=== PATIENT | male | born 1995 | race Two or more races ===

== ENCOUNTER 2022-10-15 10:34 | Emergency (ER) | payer OTHER ==
[~2022-10-15] VITALS: Ht 170.2 cm; Wt 65.0 kg
[2022-10-15 11:39] VITALS: BP 109/74
[2022-10-15] MEDS ORDERED: EMTR1TAB12 PO (12:05)
[2022-10-15] MEDS ORDERED: FLUO20TA34 PO (12:05)
== END 2022-10-15 12:21 | disposition home or self-care (01) ==
LOC: ER 10:34
DX: F41.9 Anxiety disorder, unspecified (principal); Z76.0 Encounter for issue of repeat prescription; F32.9 Major depressive disorder, single episode, unspecified; F20.9 Schizophrenia, unspecified

== ENCOUNTER 2023-11-25 19:03 | Emergency (ER) | payer OTHER ==
[~2023-11-25] VITALS: Ht 170.2 cm; Wt 70.9 kg
[~2023-11-25 19:03] MED LIST: EMTR1TAB12 PO; FLUO20TA36 PO
[2023-11-25] MEDS ORDERED: BICT1TAB PO (21:25)
[2023-11-25 22:19] VITALS: BP 121/88; PULSE 72; RESP 18; TEMP 99.1; O2SAT 99
== END 2023-11-25 22:21 | disposition home or self-care (01) ==
LOC: ER 19:03
DX: Z76.0 Encounter for issue of repeat prescription (principal); Z21 Asymptomatic human immunodeficiency virus [HIV] infection status; Z88.6 Allergy status to analgesic agent

== ENCOUNTER 2025-03-26 21:05 | Emergency (ER) | payer MEDICAID, OTHER ==
[~2025-03-26] VITALS: Ht 170.2 cm; Wt 70.2 kg
[~2025-03-26 21:05] MED LIST changes: +BICT1TAB PO; -FLUO20TA36 PO; +FLUO20TA42 PO
--- NOTE | 2025-03-26 21:43 | ED.PDOC ---
GI ASSESSMENT HPI Comments 29-year-old male presented to the ER with a chief complaint of epigastric abdominal pain for the past 1 day. Patient was recently [facility], and is currently homeless, reports eating outside, no sick contacts, states that he experienced epigastric abdominal pain, across the abdomen, not associated with nausea/vomiting/diarrhea. Does report constipation. Also reports that his testes are sore but denied any discharge or sores. Does report urinary frequency and dysuria. Denies hematuria. Patient is non compliant with Biktarvy medication. Does not have a physician. Last sexual activity was 02/25 in [facility], with a male partner. Past medical history: History of syphilis, SUP-uledgnmrkgys-gbxzgg unknown, anxiety, depression, schizophrenia Social history: Smokes cigarettes, reports using methamphetamine and drinking alcohol. Homeless. Patient seen and examined in ER lobby. Abdomen is diffusely tender but soft and normoactive bowel sounds. Scrotum is swollen but nontender, nonerythematous, no drainage noted. No inguinal lymphadenopathy or rash or sores noted. Chief Complaint: Abdominal Pain Time Seen by MD: 21:14 Allergies: Coded Allergies: Risperidone (Verified Allergy, Unknown, 11/25/23) Home Meds Active Scripts Doxycycline (Monohydrate) (Doxycycline) 100 Mg Cap, 100 MG PO BID for 10 Days, #20 CAP 0 Refills Prov:SHEILA LIU RESIDENT 03/27/25 Oafsdggegow-Ypuuoyzhomrrj-Ksjc (Biktarvy 50-200-25 mg) 1 Tab Tab, 1 TAB PO DAILY for 14 Days, #14 TAB Prov:SHEILA LIU RESIDENT 03/27/25 Fluoxetine Hcl (Fluoxetine Hcl) 20 Mg Tab, 1 TAB PO DAILY, #20 TAB 1 Refill Prov:KARISHMA ORANTES 10/15/22 Emtricitabine/Rilpivirine/Teno (Odefsey 200-25-25 mg) 1 Tab Tab, 1 TAB PO DAILY, #20 TAB Prov:KARISHMA ORANTES 10/15/22 Mode of Arrival: Ambulatory Past Medical History PAST MEDICAL HISTORY: Anxiety, Depression, Schizophrenia Surgical History: Denies all surgeries Family History Family History: Reviewed,noncontributory to illness Social History Smoker: Non-Smoker Alcohol: Denies ETOH Use Drugs: Denies Drug Use Lives In: Home Constitutional: reports: chills EENTM: denies: blurred vision, double vision, ear bleeding, ear discharge, ear drainage, ear pain, ear ringing, eye pain, eye redness, hearing loss, mouth pain, mouth swelling, nasal discharge, nose bleeding, nose congestion, nose pain, photophobia, tearing, throat pain, throat swelling, voice changes, others Respiratory: denies: cough, hemoptysis, orthopnea, SOB at rest, shortness of breath, SOB with excertion, stridor, wheezing, others Cardiovascular: denies: chest pain, dizzy spells, diaphoresis, Dyspnea on exertion, edema, irregular heart beat, left arm pain, lightheadedness, palpitations, PND, syncope, others Gastrointestinal: reports: abdominal pain Genitourinary: reports: burning, dysuria Neurological: denies: dizziness, fainting, headache, left sided numbness, left sided weakness, numbness, paresthesia, pre-existing deficit, right sided numbness, right sided weakness, seizure, speech problems, tingling, tremors, weakness, others Musculoskeletal: denies: back pain, gout, joint pain, joint swelling, muscle pain, muscle stiffness, neck pain, others Integumetry: denies: bruises, change in color, change in hair/nails, dryness, laceration, lesions, lumps, rash, wounds, others Allergic/Immunocompromised: denies: Difficulty Healing, Frequent Infections, Hives, Itching, others Hematologic/Lymphatic: denies: anemia, blood clots, easy bleeding, easy bruising, swollen glands, others Endocrine: denies: excessive hunger, excessive sweating, excessive thirst, excessive urination, flushing, intolerance to cold, intolerance to heat, unexplained weight gain, unexplained weight loss, others Psychiatric: denies: anxiety, bipolar disorder, depression, hopeless, panic disorder, schizophrenia, sleepless, suicidal, others Physical Exam General Appearance: No Apparent Distress, Normal HEENT: NOT DONE Neck: NOT DONE Respiratory: No Accessory Muscle Use, No Respiratory Distress, Normal Breath Sounds Cardiovascular: No Edema, Regular Rate/Rhythm Breast Exam: Deferred Gastrointestinal: Epigastric, LUQ, Normal Bowel Sounds, Tenderness Genitalia: Other (Scrotum is swollen but nontender, nonerythematous, no discharge noted, no rash no sores) Pelvic: Deferred Rectal: Deferred Extremities: No calf tenderness, Normal capillary refill, Normal inspection, Normal range of motion, Non-tender, No pedal edema Neurologic: NOT DONE Cerebellar Function: NOT DONE Reflexes: NOT DONE Skin: NOT DONE Lymphatic: Other (No inguinal lymphadenopathy) Was a procedure done? Was a procedure done?: No GI differential Dx Differential Diagnosis: Constipation, Pancreatitis, Urolithiasis, Electrolyte Imbalance, Food Poisoning Other Differential Diagnosis Chlamydia/gonorrhea UTI/epididymitis X-Ray, Labs, Meds, VS Vital Signs Date Time Temp Pulse Resp B/P (MAP) Pulse Ox O2 Delivery O2 Flow Rate FiO2 03/27/25 01:12 Room Air* 0 21 03/27/25 01:09 98.1 65 13 114/81 (92) 97 98.1 03/26/25 21:07 98.0 76 16 117/81 97 98.0 Lab Test 03/26/25 23:20 03/26/25 21:49 Range/Units Urine Color Yellow Yellow Urine Clarity Clear Clear Urine pH 6.5 5.0-9.0 Urine Specific [place] 1.032 1.001-1.035 Urine Protein Trace H Negative Urine Ketones Negative Negative Urine Blood Negative Negative /uL Urine Nitrite Negative Negative Urine Bilirubin Negative Negative Urine Urobilinogen Normal Negative mg/dL Urine Leukocyte Esterase Negative Negative /uL Urine RBC None seen 0 - 3 /hpf Urine Microscopic WBC 1 0-3 /HPF Urine Squamous Epithelial Cells None seen <5 /hpf Urine Calcium Oxalate Crystals Few None Seen Urine Amorphous Crystals Few None Seen /hpf Urine Bacteria None seen None Seen /hpf Urine Mucus Few None Seen Urine Glucose Normal Normal mg/dL White Blood Count 8.1 4.4-10.8 10^3/uL Red Blood Count 4.15 L 4.5-5.90 10^6/uL Hemoglobin 13.2 L 13.5-17.5 g/dL Hematocrit 38.7 L 41.0-53.0 % Mean Corpuscular Volume 93.2 80.0-100.0 fL Mean Corpuscular Hemoglobin 31.9 28.0-32.0 pg Mean Corpuscular Hemoglobin Concent 34.2 32.0-36.0 g/dL Red Cell Distribution Width 13.4 11.8-14.3 % Platelet Count 276 140-450 10^3/uL Mean Platelet Volume 7.5 6.9-10.8 fL Neutrophils (%) (Auto) 63.8 37.0-80.0 % Lymphocytes (%) (Auto) 26.3 10.0-50.0 % Monocytes (%) (Auto) 8.6 0.0-12.0 % Eosinophils (%) (Auto) 1.0 0.0-7.0 % Basophils (%) (Auto) 0.3 0.0-2.0 % Neutrophils # (Auto) 5.2 1.6-8.6 10 ^3/uL Lymphocytes # (Auto) 2.1 0.4-5.4 10 ^3/uL Monocytes # (Auto) 0.7 0-1.3 10 ^3/uL Eosinophils # (Auto) 0.1 0-0.8 10 ^3/uL Basophils # (Auto) 0 0-0.2 10 ^3/uL Nucleated Red Blood Cells 0.0 % Sodium Level 144 136-145 mmol/L Potassium Level 3.7 3.5-5.1 mmol/L Chloride Level 107 98-107 mmol/L Carbon Dioxide Level 30 20-31 mmol/L Anion Gap 7 5-15 Blood Urea Nitrogen 12 9-23 mg/dL Creatinine 0.75 0.700-1.30 mg/dL Glomerular Filtration Rate Calc 124 >90 mL/min BUN/Creatinine Ratio 16.0 10.0-20.0 Serum Glucose 99 74-106 mg/dL Calcium Level 9.2 8.7-10.4 mg/dL Total Bilirubin 0.3 0.2-1.0 mg/dL Aspartate Amino Transferase (AST) 25 13-40 U/L Alanine Aminotransferase (ALT) 53 H 7-40 U/L Alkaline Phosphatase 78 46-116 U/L Total Protein 7.0 5.7-8.2 g/dL Albumin 4.4 3.2-4.8 g/dL Lipase 26 12-53 U/L Current Medications Medications (Trade) Dose Ordered Sig/Elvira Route Start Time Stop Time Status Last Admin Pantoprazole Sodium (Protonix Tablet) 40 mg ONCE ONCE PO 03/26/25 22:45 03/26/25 22:46 DC 03/27/25 01:28 Polyethylene Glycol (Miralax 17GM Powder) 17 gm ONCE ONCE PO 03/26/25 22:45 03/26/25 22:46 DC 03/27/25 01:28 Ceftriaxone Sodium 50 ml @ 100 mls/hr ONCE ONCE IV 03/26/25 23:15 03/26/25 23:44 DC 03/27/25 01:28 X-Ray, Labs, Meds, VS Comment Indication: abdmonial pain Comparison: None Technique: Helical axial scans were performed through the abdomen and pelvis without intravenous contrast. Helical axial scans Subsequently, coronal and sagittal reformations were obtained. Dose lowering techniques have been used including automated exposure control and adjustment of mA and/or kv according to patient size. FINDINGS: Limited evaluation of the vasculature and solid organs due to lack of intravenous contrast. LUNGS BASES: Clear LIVER: Normal noncontrast appearance of the liver SPLEEN: Normal GALLBLADDER: Contracted and not well evaluated. PANCREAS: Normal ADRENAL GLANDS: Normal KIDNEYS: No hydronephrosis or obstructing renal stone. Nonobstructing right renal stone. GI: No bowel dilation or wall thickening. No bowel dilation or wall thickening LYMPH NODES: Normal VASCULAR STRUCTURES: Normal BLADDER: Partially contracted and not well evaluated PELVIC ORGAN: Normal FREE AIR OR FREE FLUID: None OSSEOUS STRUCTURES: Normal SOFT TISSUES: Normal DLP is 339.21 mGy-cm. CTDI vol is 6.17 mGy. IMPRESSION: 1. No acute abnormality on noncontrast CT abdomen or pelvis. 2. Nonobstructing right renal stone. ASOUND OF SCROTUM AND CONTENTS. INDICATION: swelling and tenderness COMPARISON: None TECHNIQUE: Multiple real-time grayscale sonographic and color and duplex Doppler images of the scrotum and its contents were obtained. FINDINGS: The right testicle measures 4.1 x 3.0 x 2.1 cm. The left testicle measures 2.8 x 2.6 x 2.5 cm. Both testicles demonstrate homogeneous echotexture without evidence of focal lesions. Left varicocele. Simple appearing left testicular cyst measures approximately 1 mm in diameter. The right epididymal head measures 1.5 cm. The left epididymal head measures 1.6 cm. Anechoic simple appearing right epididymal cysts, the largest of which measures 7 x 6 x 4 mm. Subsequent color and duplex Doppler interrogation of the testes demonstrated symmetric normal vascular flow to both testicles. No focal areas of hyperemia were seen. IMPRESSION: 1. No evidence of torsion, epididymitis, and/or orchitis. 2. Left varicocele. 3. Right epididymal cysts. 4. Simple appearing left testicular cyst. Images Reviewed?: Images reviewed and evaluated by me Time of 1ST Reevaluation: 02:00 Reevaluation 1ST: Improved Consultation: PCP Patient Education/Counseling: Diagnosis, Treatment Family Education/Counseling: No Family Present SEPSIS Sepsis Screen Date sepsis recognized/suspect: Mar 26, 2025 Time Sepsis recognized/suspect: 2106 Recent Procedure: No On Antibiotic Therapy: No Respiratory Rate >20: No Heart Rate >90: No Temp<36 C (96.8 F) or >38.3 C: No SBP <90 or MAP <65 mmHG: No New Acute Mental Status Change: No Is the patient on CPAP, BIPAP,: No Physician Orders Ct Ab Pel Wo Con-No Oral Or Iv (03/26/25 21:35) Communication Order (03/26/25 23:14) Testicular Ultrasound (03/27/25 00:11) Jock Strap Support (03/27/25 01:58) Vital Signs Date Time Temp Pulse Resp B/P (MAP) Pulse Ox O2 Delivery O2 Flow Rate FiO2 03/27/25 01:12 Room Air* 0 21 03/27/25 01:09 98.1 65 13 114/81 (92) 97 98.1 03/26/25 21:07 98.0 76 16 117/81 97 98.0 Laboratory Tests Test 03/26/25 21:49 White Blood Count 8.1 10^3/uL (4.4-10.8) Medications Medications Dose Ordered Sig/Elvira Route Start Time Stop Time Status Last Admin Dose Admin Ceftriaxone Sodium 50 ml @ 100 mls/hr ONCE ONCE IV 03/26/25 23:15 03/26/25 23:44 DC 03/27/25 01:28 Pantoprazole Sodium 40 mg ONCE ONCE PO 03/26/25 22:45 03/26/25 22:46 DC 03/27/25 01:28 Polyethylene Glycol 17 gm ONCE ONCE PO 03/26/25 22:45 03/26/25 22:46 DC 03/27/25 01:28 Departure 1 Departure Time of Disposition: 02:00 Impression: Primary Impression: History of HIV infection Additional Impressions: Varicocele Urinary tract infection Disposition: 01 HOME / SELF CARE / HOMELESS Condition: Fair e-Prescriptions Doxycycline (Monohydrate) (Doxycycline) 100 Mg Cap 100 MG PO BID for 10 Days, #20 CAP 0 Refills Prov: SHEILA LIU RESIDENT 03/27/25 Vuyytyafqtf-Zuffswcvzdmub-Kfnt (Biktarvy 50-200-25 mg) 1 Tab Tab 1 TAB PO DAILY for 14 Days, #14 TAB Prov: SHEILA LIU RESIDENT 03/27/25 Discharged With: Self Comments IV ceftriaxone 1 g administered, IV doxycycline 500 mg administered once P.o. doxycycline 100 mg twice daily for the next 10 days Where a tight underwear or scrotal support-scrotal support left stay testicles, reducing venous congestion and pulling tension which relieves the dull heavy ache please wear it during the day especially with standing walking or exercising for long periods. Remove it at night if comfortable. If testicular pain persist despite support, follow up with the Urology for possible surgical options Follow up with primary care physician within the next 3 days Follow up with the Infectious Disease for repeat CD4/CD8 ratio, viral load Tablet Biktarvy once daily, renewed and sent to [facility] Use a new latex or polyuria 10 condom every time you have vaginal/anal or oral sex The fewer sexual partners, the lower your risk of new STIs Avoid smoking/drinking/drug use ULTRASOUND OF SCROTUM AND CONTENTS. INDICATION: swelling and tenderness COMPARISON: None TECHNIQUE: Multiple real-time grayscale sonographic and color and duplex Doppler images of the scrotum and its contents were obtained. FINDINGS: The right testicle measures 4.1 x 3.0 x 2.1 cm. The left testicle measures 2.8 x 2.6 x 2.5 cm. Both testicles demonstrate homogeneous echotexture without evidence of focal lesions. Left varicocele. Simple appearing left testicular cyst measures approximately 1 mm in diameter. The right epididymal head measures 1.5 cm. The left epididymal head measures 1.6 cm. Anechoic simple appearing right epididymal cysts, the largest of which measures 7 x 6 x 4 mm. Subsequent color and duplex Doppler interrogation of the testes demonstrated symmetric normal vascular flow to both testicles. No focal areas of hyperemia were seen. IMPRESSION: 1. No evidence of torsion, epididymitis, and/or orchitis. 2. Left varicocele. 3. Right epididymal cysts. 4. Simple appearing left testicular cyst. Critical Care Note Critical Care Time?: No Stability Stability form required: No SHEILA LIU RESIDENT Mar 26, 2025 21:43
[2025-03-26 22:08] LABS: Hematocrit 38.7 % (41.0-53.0); Hemoglobin 13.2 g/dL (13.5-17.5); Mean Corpuscular Hemoglobin 31.9 pg (28.0-32.0); Mean Corpuscular Volume 93.2 fL (80.0-100.0); Nucleated Red Blood Cells % 0.0 %
[2025-03-26 22:18] LABS: Albumin 4.4 g/dL (3.2-4.8); Alkaline Phosphatase 78 U/L (46-116); Anion Gap 7 (5-15); BUN/Creatinine Ratio 16.0 (10.0-20.0); Bilirubin, Total 0.3 mg/dL (0.2-1.0); Blood Urea Nitrogen 12 mg/dL (9-23); Calcium 9.2 mg/dL (8.7-10.4); Carbon Dioxide 30 mmol/L (20-31); Chloride 107 mmol/L (98-107); Glucose 99 mg/dL (74-106); Lipase 26 U/L (12-53); Potassium 3.7 mmol/L (3.5-5.1); Sodium 144 mmol/L (136-145); Total Protein 7.0 g/dL (5.7-8.2)
[2025-03-26 22:20] LABS: Alanine Aminotransferase 53 U/L (7-40)
--- NOTE | 2025-03-26 22:20 | DVH ---
Indication: abdmonial pain Comparison: None Technique: Helical axial scans were performed through the abdomen and pelvis without intravenous cont rast. Helical axial scans Subsequently, coronal and sagittal reformations were obtained. Dose lowering techniques have been used including automated exposure control and adjustment of mA and /or kv according to patient size. FINDINGS: Limited evaluation of the vasculature and solid organs due to lack of intravenous contrast. LUNGS BASES: Clear LIVER: Normal noncontrast appearance of the liver SPLEEN: Normal GALLBLADDER: Contracted and not well evaluated. PANCREAS: Normal ADRENAL GLANDS: Normal KIDNEYS: No hydronephrosis or obstructing renal stone. Nonobstructing right renal stone. GI: No bowel dilation or wall thickening. No bowel dilation or wall thickening LYMPH NODES: Normal VASCULAR STRUCTURES: Normal BLADDER: Partially contracted and not well evaluated PELVIC ORGAN: Normal FREE AIR OR FREE FLUID: None OSSEOUS STRUCTURES: Normal SOFT TISSUES: Normal DLP is 339.21 mGy-cm. CTDI vol is 6.17 mGy. IMPRESSION: 1. No acute abnormality on noncontrast CT abdomen or pelvis. 2. Nonobstructing right renal stone.
[2025-03-26] MEDS: AZITHROMYCIN 500MG/ 250ML 250 ML IV ONE (23:00)
[2025-03-26 23:56] LABS: Urine Amorphous Crystal FEW /hpf (None Seen); Urine Protein, UAD TRACE (Negative)
[2025-03-27 01:09] VITALS: BP 114/81; PULSE 65; RESP 13; TEMP 98.1; O2SAT 97
--- NOTE | 2025-03-27 01:24 | DVH ---
ULTRASOUND OF SCROTUM AND CONTENTS. INDICATION: swelling and tenderness COMPARISON: None TECHNIQUE: Multiple real-time grayscale sonographic and color and duplex Doppler images of the scrotu m and its contents were obtained. FINDINGS: The right testicle measures 4.1 x 3.0 x 2.1 cm. The left testicle measures 2.8 x 2.6 x 2.5 cm. Both testicles demonstrate homogeneous echotexture without evidence of focal lesions. Left varicocele. Simple appearing left testicular cyst measures approximately 1 mm in diameter. The right epididymal head measures 1.5 cm. The left epididymal head measures 1.6 cm. Anechoic simple appearing right epididymal cysts, the largest of which measures 7 x 6 x 4 mm. Subsequent color and duplex Doppler interrogation of the testes demonstrated symmetric normal vascula r flow to both testicles. No focal areas of hyperemia were seen. IMPRESSION: 1. No evidence of torsion, epididymitis, and/or orchitis. 2. Left varicocele. 3. Right epididymal cysts. 4. Simple appearing left testicular cyst.
[2025-03-27] MEDS: PANTOPRAZOLE 40 MG TAB PO ONE (01:28)
[2025-03-27] MEDS: POLYETHYLENE GLYCOL 17 GM PWDR PO ONE (01:28)
[2025-03-27] MEDS ORDERED: DOXY1CAP58 PO (02:00)
[2025-03-27] MEDS ORDERED: BICT1TAB PO (02:00)
== END 2025-03-27 03:47 | disposition home or self-care (01) ==
LOC: ER 21:05
DX: N39.0 Urinary tract infection, site not specified (principal); I86.1 Scrotal varices; F41.9 Anxiety disorder, unspecified; F32.A Depression, unspecified; F20.9 Schizophrenia, unspecified; Z79.899 Other long term (current) drug therapy; Z59.00 Homelessness unspecified; Z21 Asymptomatic human immunodeficiency virus [HIV] infection status; Z88.8 Allergy status to other drugs, medicaments and biological substances; Z79.624 Long term (current) use of inhibitors of nucleotide synthesis; Z86.19 Personal history of other infectious and parasitic diseases
CPT/HCPCS: 36415; 74176; 76870; 80053; 81001; 83690; 85025; 96365; 96366; 96367; 99285; J0456; J0696

== ENCOUNTER 2025-04-01 22:42 | Inpatient (IN) | payer MEDICAID ==
[~2025-04-01] VITALS: Ht 170.2 cm; Wt 56.8 kg
[~2025-04-01 22:42] MED LIST changes: +DOXY1CAP58 PO
[2025-04-01] MEDS: SODIUM CHLORIDE 0.9% 1,000 ML IV ONE (23:30)
[2025-04-01] MEDS: IOHEXOL 300 MG/ML 100ML BOTTLE IJ ONE (23:34)
[2025-04-01 23:50] LABS: Hematocrit 38.3 % (41.0-53.0); Hemoglobin 12.9 g/dL (13.5-17.5); Mean Corpuscular Hemoglobin 31.6 pg (28.0-32.0); Mean Corpuscular Volume 93.7 fL (80.0-100.0); Nucleated Red Blood Cells % 0.0 %
[2025-04-02 00:08] LABS: Albumin 4.5 g/dL (3.2-4.8); Alkaline Phosphatase 69 U/L (46-116); Anion Gap 11 (5-15); BUN/Creatinine Ratio 17.4 (10.0-20.0); Blood Urea Nitrogen 16 mg/dL (9-23); Calcium 9.2 mg/dL (8.7-10.4); Carbon Dioxide 27 mmol/L (20-31); Lipase 24 U/L (12-53); Total Protein 7.4 g/dL (5.7-8.2)
[2025-04-02 00:09] LABS: Alanine Aminotransferase 43 U/L (7-40); Bilirubin, Total 0.8 mg/dL (0.2-1.0); Chloride 110 mmol/L (98-107); Glucose 108 mg/dL (74-106); Potassium 3.2 mmol/L (3.5-5.1); Sodium 148 mmol/L (136-145)
--- NOTE | 2025-04-02 00:51 | DVH ---
Exam: CT CT AB PEL WITH IV CON ONLY History: Right lower quadrant abdominal pain Comparison Study: None TECHNIQUE: A digital crematory operator image was obtained. During the uneventful, intravenous administration of c ontrast material, multislice data acquisition was obtained through the abdomen and pelvis. The data s et was subsequently reconstructed into multiplanar reformats. RADIATION DOSE: CTDI vol 5.37 mGy. DLP 285.58 mGy.cm Findings: Evaluation is degraded by motion artifact. Lungs: The lung bases are clear. Liver: Unremarkable. Spleen: Unremarkable. Pancreas: Unremarkable. Gallbladder: Unremarkable. Adrenals: Unremarkable Kidneys: Unremarkable. Pelvic Viscera: Unremarkable. Vasculature: Unremarkable. Retroperitoneum: Unremarkable. Bowel: No bowel obstruction. The appendix is normal. Musculoskeletal: Unremarkable. Soft tissues: Unremarkable Impression: 1. No acute abdominopelvic abnormality.
--- NOTE | 2025-04-02 01:09 | ED.PDOC ---
History of Present Illness HPI Comments 29 year old male with history of HIV presents to the ED with RLQ abdominal pain for the past 2 days. Pain is currently 7/10 in severity. Associated with shortness of breath, vomiting and constipation. Last bowel movement was 3 days ago. Patient states he has not had any medications for mental health or HIV for the past 10 days. He reports drinking alcohol daily. Last drink was 2 days ago. He does not have a PCP at this time. He has been getting all of his medications from the ER. REVIEW OF SYSTEMS: General: No fever, no chills, or fatigue HEENT: No sore throat, no earache, no congestion, no neck pain. Cardiac: No chest pain. No palpitations. Lungs: No shortness of breath, no cough. GI: + nausea, + vomiting, no diarrhea, + constipation, + abdominal pain : No dysuria, frequency, or urgency. No hematuria. Musculoskeletal: No joint pain , no joint swelling, no extremity edema. Skin: No rash, no itching. Neuro: No headache, no dizziness, no weakness PHYSICAL EXAM: General: Awake, alert and oriented. No acute distress. Skin: Skin in warm, dry and intact. Appropriate color for ethnicity. HEENT: The head is normocephalic and atraumatic. Conjunctivae are clear without exudates or hemorrhage. Sclera is non-icteric. EOM are intact. No signs of nystagmus. Eyelids are normal in appearance without swelling or lesions. Lips are dry and cracked Neck: The neck is supple with normal range of motion. No JVD. Cardiac: Heart rate and rhythm are normal. No murmurs, gallops, or rubs are auscultated. Respiratory: No signs of respiratory distress. Lung sounds are clear in all lobes bilaterally without rales, rhonchi, or wheezes. Abdominal: Abdomen is soft, positive right lower quadrant tenderness without distention, guarding or rigidity. Bowel sounds are present and normoactive in all four quadrants. Extremities: Upper and lower extremities are atraumatic in appearance without deformity or edema. Neurological: The patient is awake, alert and oriented to person, place, and time with normal speech. Speech is clear. There is no facial asymmetry. Psychiatric: Appropriate mood and affect. Good judgement and insight. Chief Complaint: Abdominal Pain Time Seen by MD: 22:51 Allergies: Coded Allergies: Risperidone (Verified Allergy, Unknown, 11/25/23) Home Meds Active Scripts Doxycycline (Monohydrate) (Doxycycline) 100 Mg Cap, 100 MG PO BID for 10 Days, #20 CAP 0 Refills Prov:SHEILA LIU RESIDENT 03/27/25 Lsnmqjlzxlf-Bpmyfparpwech-Xuya (Biktarvy 50-200-25 mg) 1 Tab Tab, 1 TAB PO DAILY for 14 Days, #14 TAB Prov:JOLANTA LIUER RESIDENT 03/27/25 Fluoxetine Hcl (Fluoxetine Hcl) 20 Mg Tab, 1 TAB PO DAILY, #20 TAB 1 Refill Prov:KARISHMA ORANTES 10/15/22 Emtricitabine/Rilpivirine/Teno (Odefsey 200-25-25 mg) 1 Tab Tab, 1 TAB PO DAILY, #20 TAB Prov:KARISHMA ORANTES 10/15/22 Mode of Arrival: Ambulatory Past Medical History PAST MEDICAL HISTORY: Anxiety, Depression, Schizophrenia Surgical History: Denies all surgeries Family History Family History: Reviewed,noncontributory to illness Social History Smoker: Non-Smoker Alcohol: Denies ETOH Use Drugs: Denies Drug Use Lives In: Home Was a procedure done? Was a procedure done?: No Differential Dx Considerations may include: Differential diagnoses considered include: Abdominal aortic aneurysm, CO, esophageal rupture, intestinal obstruction, mesenteric ischemia, perforated viscus or solid organ rupture, CHF with hepatomegaly, pneumonia, abscess, appendicitis, biliary disease, diverticulitis, gastritis, gastroenteritis, hepatitis, hernia, inflammatory bowel disease, pancreatitis, peptic ulcer disease, urinary tract infection, ureteral colic, constipation, GERD, irritable syndrome, abdominal wall pain, nonspecific abdominal pain, herpes zoster, nephrolithiasis. X-Ray, Labs, Meds, VS Vital Signs Date Time Temp Pulse Resp B/P (MAP) Pulse Ox O2 Delivery O2 Flow Rate FiO2 04/02/25 02:21 98.5 93 16 127/91 (103) 98 98.5 04/02/25 01:16 Room Air* 0 21 04/02/25 00:08 98.6 90 20 135/94 (108) 99 98.6 04/01/25 22:43 98.1 104 18 136/85 95 98.1 Lab Test 04/02/25 02:08 04/01/25 23:33 Range/Units Urine Color Yellow Yellow Urine Clarity Clear Clear Urine pH 6.0 5.0-9.0 Urine Specific [place] > 1.050 H 1.001-1.035 Urine Protein 1+ H Negative Urine Ketones 4+ H Negative Urine Blood Negative Negative /uL Urine Nitrite Negative Negative Urine Bilirubin Negative Negative Urine Urobilinogen Normal Negative mg/dL Urine Leukocyte Esterase Negative Negative /uL Urine RBC 16 0 - 3 /hpf Urine Microscopic WBC 2 0-3 /HPF Urine Squamous Epithelial Cells None seen <5 /hpf Urine Bacteria Many H None Seen /hpf Urine Mucus Few None Seen Urine Sperm Present None Seen /hpf Urine Glucose Normal Normal mg/dL Urine Opiates Screen Neg NEGATIVE Urine Fentanyl Screen Neg NEGATIVE Urine Barbiturates Screen Neg NEGATIVE Urine Phencyclidine Screen Neg NEGATIVE Urine Amphetamines Screen Pos NEGATIVE Urine Benzodiazepines Screen Neg NEGATIVE Urine Cocaine Screen Neg NEGATIVE Urine Cannabinoids Screen Neg NEGATIVE White Blood Count 8.7 4.4-10.8 10^3/uL Red Blood Count 4.09 L 4.5-5.90 10^6/uL Hemoglobin 12.9 L 13.5-17.5 g/dL Hematocrit 38.3 L 41.0-53.0 % Mean Corpuscular Volume 93.7 80.0-100.0 fL Mean Corpuscular Hemoglobin 31.6 28.0-32.0 pg Mean Corpuscular Hemoglobin Concent 33.7 32.0-36.0 g/dL Red Cell Distribution Width 12.9 11.8-14.3 % Platelet Count 264 140-450 10^3/uL Mean Platelet Volume 7.7 6.9-10.8 fL Neutrophils (%) (Auto) 79.5 37.0-80.0 % Lymphocytes (%) (Auto) 13.2 10.0-50.0 % Monocytes (%) (Auto) 7.0 0.0-12.0 % Eosinophils (%) (Auto) 0.0 0.0-7.0 % Basophils (%) (Auto) 0.3 0.0-2.0 % Neutrophils # (Auto) 6.9 1.6-8.6 10 ^3/uL Lymphocytes # (Auto) 1.1 0.4-5.4 10 ^3/uL Monocytes # (Auto) 0.6 0-1.3 10 ^3/uL Eosinophils # (Auto) 0 0-0.8 10 ^3/uL Basophils # (Auto) 0 0-0.2 10 ^3/uL Nucleated Red Blood Cells 0.0 % Sodium Level 148 H 136-145 mmol/L Potassium Level 3.2 L 3.5-5.1 mmol/L Chloride Level 110 H 98-107 mmol/L Carbon Dioxide Level 27 20-31 mmol/L Anion Gap 11 5-15 Blood Urea Nitrogen 16 9-23 mg/dL Creatinine 0.92 0.700-1.30 mg/dL Glomerular Filtration Rate Calc 114 >90 mL/min BUN/Creatinine Ratio 17.4 10.0-20.0 Serum Glucose 108 H 74-106 mg/dL Lactic Acid Level 1.2 0.4-2.0 mmol/L Calcium Level 9.2 8.7-10.4 mg/dL Total Bilirubin 0.8 0.2-1.0 mg/dL Aspartate Amino Transferase (AST) 62 H 13-40 U/L Alanine Aminotransferase (ALT) 43 H 7-40 U/L Alkaline Phosphatase 69 46-116 U/L Total Protein 7.4 5.7-8.2 g/dL Albumin 4.5 3.2-4.8 g/dL Lipase 24 12-53 U/L Time of 1ST Reevaluation: 01:06 Reevaluation 1ST: Unchanged Patient Education/Counseling: Other (Need for admission) Family Education/Counseling: No Family Present SEPSIS Sepsis Screen Date sepsis recognized/suspect: Apr 01, 2025 Time Sepsis recognized/suspect: 2242 Recent Procedure: No On Antibiotic Therapy: No Respiratory Rate >20: No Heart Rate >90: Yes Temp<36 C (96.8 F) or >38.3 C: No SBP <90 or MAP <65 mmHG: No New Acute Mental Status Change: No Is the patient on CPAP, BIPAP,: No Physician Orders Ct Ab Pel With Iv Con Only (04/01/25 23:18) * Line Crew Supervisor Consult (04/02/25 ) Vital Signs Date Time Temp Pulse Resp B/P (MAP) Pulse Ox O2 Delivery O2 Flow Rate FiO2 04/02/25 02:21 98.5 93 16 127/91 (103) 98 98.5 04/02/25 01:16 Room Air* 0 21 04/02/25 00:08 98.6 90 20 135/94 (108) 99 98.6 04/01/25 22:43 98.1 104 18 136/85 95 98.1 Laboratory Tests Test 04/01/25 23:33 Lactic Acid Level 1.2 mmol/L (0.4-2.0) White Blood Count 8.7 10^3/uL (4.4-10.8) Departure 1 Departure Time of Disposition: 01:06 Impression: Primary Impression: Abdominal pain Additional Impressions: Elevated liver enzymes HIV (human immunodeficiency virus infection) Hypernatremia Hyperkalemia Disposition: ADMITTED INPATIENT Condition: Stable Comments Patient admitted to hospitalist service for further treatment, evaluation and monitoring. Critical Care Note Critical Care Time?: No Stability Stability form required: BALWINDER Harper MD Apr 02, 2025 01:09
[2025-04-02] MEDS ORDERED: ACETAMINOPHEN 325 MG TAB PO PRN (03:15)
[2025-04-02] MEDS: POTASSIUM CHL 20 Meq TABLET PO ONE (03:15)
[2025-04-02] MEDS: SODIUM CHLORIDE 0.9% 1,000 ML IVB ONE (03:15)
[2025-04-02] MEDS ORDERED: ONDANSETRON HCL 4 MG/2 ML VIAL IV PRN (03:15)
[2025-04-02] MEDS ORDERED: POLYETHYLENE GLYCOL 17 GM PWDR PO PRN (03:15)
[2025-04-02] MEDS ORDERED: LORazepam 2MG/ML-1ML VIAL IV PRN (03:15)
[2025-04-02 03:24] LABS: Urine Protein, UAD 1+ (Negative)
[2025-04-02] MEDS: FOLIC ACID 1 MG TAB PO ONE (03:39)
[2025-04-02] MEDS: MULTIPLE VITAMIN TAB PO ONE (03:39)
[2025-04-02] MEDS: THIAMINE 100mg/ml INJ (200mg/2ml VIAL) IV ONE (03:46)
[2025-04-02] MEDS: PANTOPRAZOLE 40 MG/10 ML VIAL INJ IV ONE (03:46)
--- NOTE | 2025-04-02 04:02 | DVHHPRES ---
History of Present Illness Resident Creating Document: AMAURY ALCANTARA RESIDENT History of Present Illness This is a 29-year-old male with a past medical history of HIV since who has come to the ER with complaints of abdominal pain, more in the right Upper quadrant for the past 2 days. He reports the pain began suddenly, was sharp, constant, 10/ 10 in intensity, nonradiating and associated with 2-3 episodes of vomiting this morning. Patient admits that he has been taking methamphetamine and last intake was today. Patient is poor historian and slightly confused, with rapid speech. On inquiry, he reports that he is able to drink and eat but that he is slightly constipated. He has not been taking his HIV medication for the past 10 days as he ran out of it. He can not remember if he has primary care physician. On admission pulse is 104, rest of the vitals are normal. Potassium is 3.2, ALT 62, AST 43. CT scan of the abdomen and pelvis is normal. We are admi tting him for further evaluation and workup. Past medical history: HIV since Past Surgical history: Denies any Family history: Patient can not remember Social history: Patient admits to taking methamphetamine frequently and his last intake was today. He drinks alcohol (last drink 2 days ago) and smokes as well allergies: None that patient can remember code status: Full code Review of Systems Review of Systems General Appearance: Alert, disoriented, confused, rapid speech HEENT: Atraumatic, Mucous membranes moist/pink Respiratory: Clear to auscultation, Normal air movement, No added sounds Cardiovascular: Regular rate, Normal S1, Normal S2, No murmurs Abdominal: Active bowel sounds, Soft, no distention, mild tenderness on right upper quadrant Extremities: No edema, Normal pulses, No tenderness/swelling Skin: No Significant rash, except past surgical scars Neuro: Normal speech, sensorimotor deficits none Psych/Mental Status: Mental status NL, Mood NL Nurse was there as dye range operator during examination Constitutional: No: Fever, Chills, Sweats, Weakness, Malaise, Other Eyes: No: Pain, Vision change, Conjunctivae inflammation, Eyelid inflammation, Other, Redness ENT: No: Ear pain, Ear discharge, Nose pain, Nose discharge, Nose congestion, Mouth pain, Mouth swelling, Throat pain, Throat swelling, Other Respiratory: No: Cough, Dry, Shortness of breath, SOB with excertion, Wheezing, Hemoptysis, Pleuritic Pain, Sputum, Wheezing, Other Cardiovascular: No: Chest Pain, Palpitations, Orthopnea, Paroxysmal Noc. Dyspnea, Edema, Lt Headedness, Other Gastrointestinal: Nausea, Vomiting, Abdominal Pain, Constipation; No: Diarrhea, Melena, Hematochezia, Other Genitourinary: No Dysuria, No Frequency, No Incontinence, No Hematuria, No Retention, No Other Musculoskeletal: No: other, neck pain, shoulder pain, arm pain, back pain, hand pain, leg pain, foot pain Skin: No: Rash, Lesions, Jaundice, Bruising, Other Neurological: No: Weakness, Numbness, Incoordination, Change in speech, Confusion, Seizures, Other Allergies: Coded Allergies: Risperidone (Verified Allergy, Unknown, 11/25/23) Medications Current Medications Medications Dose Ordered Sig/Elvira Route Start Time Stop Time Status Last Admin Dose Admin Acetaminophen 650 mg Q6HP PRN PO 04/02/25 03:15 Thiamine HCl 100 mg DAILY PO 04/02/25 10:00 Folic Acid 1 mg DAILY PO 04/02/25 10:00 Multivitamins 1 tab DAILY PO 04/02/25 10:00 Lorazepam 1 mg Q2HPRN PRN IV 04/02/25 03:15 Polyethylene Glycol 17 gm DAILYPRN PRN PO 04/02/25 03:15 Ondansetron HCl 4 mg Q6HPRN PRN IV 04/02/25 03:15 Pantoprazole Sodium 40 mg DAILY@0600 PO 04/02/25 06:00 Patient Own Medication 1 tab DAILY PO 04/02/25 10:00 UNV Exam Vital Signs Vital Signs Date Time Temp Pulse Resp B/P (MAP) Pulse Ox O2 Delivery O2 Flow Rate FiO2 04/02/25 02:21 98.5 93 16 127/91 (103) 98 98.5 04/02/25 01:16 Room Air* 0 21 Exam General Appearance: Alert, Oriented X3, Cooperative, Not in acute distress HEENT: Atraumatic, Mucous membranes moist/pink Respiratory: Clear to auscultation, Normal air movement, No added sounds Cardiovascular: Regular rate, Normal S1, Normal S2, No murmurs Abdominal: Active bowel sounds, Soft, no distention, mild tenderness on right upper quadrant Extremities: No edema, Normal pulses, No tenderness/swelling Skin: No Significant rash, except past surgical scars Neuro: Normal speech, sensorimotor deficits none Psych/Mental Status: Mental status NL, Mood NL Nurse was there as dye range operator during examination Labs/Xrays Labs Test 04/02/25 02:08 04/01/25 23:33 Range/Units Urine Color Yellow Yellow Urine Clarity Clear Clear Urine pH 6.0 5.0-9.0 Urine Specific [place] > 1.050 H 1.001-1.035 Urine Protein 1+ H Negative Urine Ketones 4+ H Negative Urine Blood Negative Negative /uL Urine Nitrite Negative Negative Urine Bilirubin Negative Negative Urine Urobilinogen Normal Negative mg/dL Urine Leukocyte Esterase Negative Negative /uL Urine RBC 16 0 - 3 /hpf Urine Microscopic WBC 2 0-3 /HPF Urine Squamous Epithelial Cells None seen <5 /hpf Urine Bacteria Many H None Seen /hpf Urine Mucus Few None Seen Urine Sperm Present None Seen /hpf Urine Glucose Normal Normal mg/dL White Blood Count 8.7 4.4-10.8 10^3/uL Red Blood Count 4.09 L 4.5-5.90 10^6/uL Hemoglobin 12.9 L 13.5-17.5 g/dL Hematocrit 38.3 L 41.0-53.0 % Mean Corpuscular Volume 93.7 80.0-100.0 fL Mean Corpuscular Hemoglobin 31.6 28.0-32.0 pg Mean Corpuscular Hemoglobin Concent 33.7 32.0-36.0 g/dL Red Cell Distribution Width 12.9 11.8-14.3 % Platelet Count 264 140-450 10^3/uL Mean Platelet Volume 7.7 6.9-10.8 fL Neutrophils (%) (Auto) 79.5 37.0-80.0 % Lymphocytes (%) (Auto) 13.2 10.0-50.0 % Monocytes (%) (Auto) 7.0 0.0-12.0 % Eosinophils (%) (Auto) 0.0 0.0-7.0 % Basophils (%) (Auto) 0.3 0.0-2.0 % Neutrophils # (Auto) 6.9 1.6-8.6 10 ^3/uL Lymphocytes # (Auto) 1.1 0.4-5.4 10 ^3/uL Monocytes # (Auto) 0.6 0-1.3 10 ^3/uL Eosinophils # (Auto) 0 0-0.8 10 ^3/uL Basophils # (Auto) 0 0-0.2 10 ^3/uL Nucleated Red Blood Cells 0.0 % Sodium Level 148 H 136-145 mmol/L Potassium Level 3.2 L 3.5-5.1 mmol/L Chloride Level 110 H 98-107 mmol/L Carbon Dioxide Level 27 20-31 mmol/L Anion Gap 11 5-15 Blood Urea Nitrogen 16 9-23 mg/dL Creatinine 0.92 0.700-1.30 mg/dL Glomerular Filtration Rate Calc 114 >90 mL/min BUN/Creatinine Ratio 17.4 10.0-20.0 Serum Glucose 108 H 74-106 mg/dL Lactic Acid Level 1.2 0.4-2.0 mmol/L Calcium Level 9.2 8.7-10.4 mg/dL Total Bilirubin 0.8 0.2-1.0 mg/dL Aspartate Amino Transferase (AST) 62 H 13-40 U/L Alanine Aminotransferase (ALT) 43 H 7-40 U/L Alkaline Phosphatase 69 46-116 U/L Total Protein 7.4 5.7-8.2 g/dL Albumin 4.5 3.2-4.8 g/dL Lipase 24 12-53 U/L SEPSIS Sepsis Screen Date sepsis recognized/suspect: Apr 02, 2025 Time Sepsis recognized/suspect: 011 Recent Procedure: No On Antibiotic Therapy: No Respiratory Rate >20: No Heart Rate >90: No Temp<36 C (96.8 F) or >38.3 C: No SBP <90 or MAP <65 mmHG: No New Acute Mental Status Change: No Is the patient on CPAP, BIPAP,: No Physician Orders Ct Ab Pel With Iv Con Only (04/01/25 23:18) * Avionics System Engineer Consult (04/02/25 ) Admit (04/02/25 03:13) Code Status (04/02/25 03:13) Full Liq Diet (04/02/25 Breakfast) Complete Blood Count (04/02/25 04:00) Comprehensive Metabolic Panel (04/02/25 04:00) Condition: Unstable (04/02/25 03:13) Acetaminophen Tablet (Tylenol Tablet) (04/02/25 03:15) Notify Of Changes From Base (04/02/25 03:13) Drug Screen (04/02/25 03:13) LIVER (04/02/25 03:13) Sodium Chloride 0.9% (04/02/25 03:15) Thiamine Tab (04/02/25 10:00) Folic Acid Tablet (04/02/25 10:00) Multiple Vitamin Tablet (Mvi Tab) (04/02/25 10:00) Thiamine Inj (04/02/25 03:15) Lorazepam 2mg/Ml Inj (Ativan Inj) (04/02/25 03:15) Etoh Withdrawal Assessment (04/02/25 03:13) Etoh Withdrawal Assessment NOW (04/02/25 03:13) Polyethylene Glycol 17g Powder (Miralax (04/02/25 03:15) Ammonia (04/02/25 03:13) Ondansetron Hcl (Zofran) (04/02/25 03:15) Pantoprazole Tablet (Protonix Tablet) (04/02/25 06:00) Blood Alcohol (04/02/25 04:00) Magnesium (04/02/25 04:00) (Nf) Rxsijaswuto-Tkrizxujwdbnt-Lrcj (Bik (04/02/25 10:00) Vital Signs Date Time Temp Pulse Resp B/P (MAP) Pulse Ox O2 Delivery O2 Flow Rate FiO2 04/02/25 02:21 98.5 93 16 127/91 (103) 98 98.5 04/02/25 01:16 Room Air* 0 21 04/02/25 00:08 98.6 90 20 135/94 (108) 99 98.6 04/01/25 22:43 98.1 104 18 136/85 95 98.1 Laboratory Tests Test 04/01/25 23:33 Lactic Acid Level 1.2 mmol/L (0.4-2.0) White Blood Count 8.7 10^3/uL (4.4-10.8) Medications Medications Dose Ordered Sig/Elvira Route Start Time Stop Time Status Last Admin Dose Admin Folic Acid 1 mg NOW ONCE PO 04/02/25 03:15 04/02/25 03:33 DC 04/02/25 03:39 1 MG Multivitamins 1 tab NOW ONCE PO 04/02/25 03:15 04/02/25 03:35 DC 04/02/25 03:39 1 TAB Pantoprazole Sodium 40 mg ONCE ONCE IV 04/02/25 03:15 04/02/25 03:35 DC 04/02/25 03:46 40 MG Potassium Chloride 60 meq ONCE ONCE PO 04/02/25 03:15 04/02/25 03:36 DC 04/02/25 03:15 60 MEQ Sodium Chloride 1,000 ml @ 1,000 mls/hr Q1H ONCE IV 04/01/25 23:30 04/02/25 00:29 DC 04/01/25 23:30 1,000 MLS/HR Sodium Chloride 1,000 ml @ 1,000 mls/hr Q1H ONCE IVB 04/02/25 03:15 04/02/25 04:14 04/02/25 03:15 1,000 MLS/HR Thiamine HCl 100 mg NOW ONCE IV 04/02/25 03:15 04/02/25 03:36 DC 04/02/25 03:46 100 MG Assessment/Plan Assessment/Plan # Intractable abdominal pain due to possible gastroenteritis # rule out cholecystitis # transaminitis - AST 62, ALT 43 - CT abdomen of the abdomen and pelvis showed no acute abdominopelvic abnormality - ultrasound of the liver ordered - NS 0.9% bolus IV 1000 mL/hour- given twice - Zofran 4 mg IV q.6 PRN - Protonix 40 mg IV once - Protonix 40 mg per orally daily # methamphetamine abuse # possible alcohol abuse # possible alcohol withdrawal- (last drink 2 days ago) # Toxic encephalopathy due to above - Ativan 1 mg IV Q 2 hour PRN - Folic acid 1 mg p.o. daily - thiamine 100 mg IV once - thiamine 100 mg p.o. daily - Multivitamin tablet p.o. daily - uds postive for meth # hypokalemia - replenished # slow transit constipation - MiraLAX 17 g daily # HIV - continuing Biktarvy 50-200-25mg daily GI prophylaxis: Protonix 40 mg daily DVT prophylaxis: patient is ambulating Diet: full liquid diet Goals of care discussed with the patient for more than 27 minutes: Full code status Case discussed with Dr. Arroyo, patient Plan discussed with: Patient My Orders Orders - AMAURY ALCANTARA RESIDENT Procedure Category Date Status Time Admit ADMIT 04/02/25 Transmitted 03:13 Code Status CODE 04/02/25 Transmitted 03:13 Full Liq Diet DIET 04/02/25 Transmitted Breakfast Complete Blood Count LAB 04/02/25 Logged 04:00 Comprehensive LAB 04/02/25 Logged Metabolic Panel 04:00 Condition: Unstable MARCELL 04/02/25 In Process 03:13 Acetaminophen Tablet PHA 04/02/25 In Process (Tylenol Tablet) 03:15 Notify Of Changes AMRCELL 04/02/25 In Process From Base 03:13 Drug Screen LAB 04/02/25 Logged 03:13 LIVER US 04/02/25 Logged 03:13 Sodium Chloride 0.9% PHA 04/02/25 In Process 03:15 Thiamine Tab PHA 04/02/25 In Process 10:00 Folic Acid Tablet PHA 04/02/25 In Process 10:00 Multiple Vitamin PHA 04/02/25 In Process Tablet (Mvi Tab) 10:00 Thiamine Inj PHA 04/02/25 In Process 03:15 Lorazepam 2mg/Ml Inj PHA 04/02/25 In Process (Ativan Inj) 03:15 Etoh Withdrawal MARCELL 04/02/25 In Process Assessment 03:13 Etoh Withdrawal MARCELL 04/02/25 In Process Assessment 03:13 Polyethylene Glycol PHA 04/02/25 In Process 17g Powder (Miralax 03:15 Ammonia LAB 04/02/25 Logged 03:13 Ondansetron Hcl PHA 04/02/25 In Process (Zofran) 03:15 Pantoprazole Tablet PHA 04/02/25 In Process (Protonix Tablet) 06:00 Blood Alcohol LAB 04/02/25 Logged 04:00 Magnesium LAB 04/02/25 Logged 04:00 (NF) PHA 04/02/25 Pending Uzzljizvxue-Mmaitecqfyqma-Ydrf 10:00 Date of Service: Apr 02, 2025 Billing Provider: MAGALI ARROYO MD Common Visit Codes: [id number] INP/OBS CARE (HIGH) AMAURY ALCANTARA RESIDENT Apr 02, 2025 04:02 MAGALI ARROYO MD Apr 02, 2025 11:55
[2025-04-02 04:49] LABS: Amphetamine Screen, Urine Pos (NEGATIVE); Barbiturate Scree,Urine Neg (NEGATIVE); Benzodiazephine Screen, Urine Neg (NEGATIVE); Cannabinoid Screen, Urine Neg (NEGATIVE); Cocaine Screen, Urine Neg (NEGATIVE); Opiate Scree,Urine Neg (NEGATIVE); Phencyclidine Screen, Urine Neg (NEGATIVE)
[2025-04-02] MEDS: PANTOPRAZOLE 40 MG TAB PO SCH (06:36)
--- NOTE | 2025-04-02 06:58 | DVH ---
EXAM: US LIVER INDICATION: Transaminitis TECHNIQUE: Multiple real-time sonographic images were obtained of the right upper quadrant. COMPARISON: CT abdomen pelvis same date. FINDINGS: The liver demonstrates homogenous echotexture without focal mass lesions. The liver measure s 17.2 cm. There is an echogenic mass measuring 2.0 x 1.5 x 2.4 cm. There is hepatopedal color doppl er flow in the main portal vein. There is no intrahepatic biliary ductal dilatation. The gallbladder is without evidence of stone or sludge. The gallbladder wall measures 0.3 cm. The common bile duct measures 0.5 cm. There is a negative sonographic Stephens's sign. The right kidney measures 10.9 cm. The right kidney is normal in contour, size, and shape. The echo genicity is normal. There is no hydronephrosis. The pancreas is not well visualized due to overlying bowel gas. Visualized portions of the aorta and inferior vena cava are unremarkable. No evidence of ascites. IMPRESSION: 1. Hepatic steatosis. 2. Echogenic mass in the right hepatic lobe measuring 2.0 x 1.5 x 1.9 cm. This may represent focal f atty deposition.
[2025-04-02 08:11] VITALS: BP 113/80; PULSE 74; RESP 16; TEMP 97.9; O2SAT 98
[2025-04-02 08:16] LABS: Hematocrit 36.8 % (41.0-53.0); Hemoglobin 12.3 g/dL (13.5-17.5); Mean Corpuscular Hemoglobin 31.6 pg (28.0-32.0); Mean Corpuscular Volume 94.5 fL (80.0-100.0); Nucleated Red Blood Cells % 0.1 %
[2025-04-02] MEDS: MULTIPLE VITAMIN TAB PO SCH (08:20)
[2025-04-02] MEDS: [UNRECOGNIZED DRUG - OTHER] PO SCH (08:20)
[2025-04-02] MEDS: FOLIC ACID 1 MG TAB PO SCH (08:20)
[2025-04-02] MEDS: THIAMINE HCL 100 MG TAB PO SCH (08:20)
[2025-04-02 08:21] LABS: Triglycerides 62 mg/dL (< 150)
[2025-04-02 08:22] LABS: HDL Cholesterol 50 mg/dL (40-59)
[2025-04-02 08:23] LABS: Cholesterol 124 mg/dL (< 200)
[2025-04-02 08:24] LABS: Alanine Aminotransferase 36 U/L (7-40); Albumin 3.9 g/dL (3.2-4.8); Alkaline Phosphatase 63 U/L (46-116); Anion Gap 12 (5-15); BUN/Creatinine Ratio 15.2 (10.0-20.0); Blood Urea Nitrogen 10 mg/dL (9-23); Carbon Dioxide 24 mmol/L (20-31); Magnesium 2.1 mg/dL (1.6-2.6); Sodium 145 mmol/L (136-145); Total Protein 6.7 g/dL (5.7-8.2)
[2025-04-02 08:25] LABS: Bilirubin, Total 1.0 mg/dL (0.2-1.0)
[2025-04-02 08:26] LABS: Calcium 8.1 mg/dL (8.7-10.4); Chloride 109 mmol/L (98-107); Glucose 67 mg/dL (74-106); Potassium 3.3 mmol/L (3.5-5.1)
[2025-04-02 08:43] LABS: Iron 53.0 ug/dL (65-175)
[2025-04-02 08:45] LABS: Total Iron Binding Capacity 258.0 ug/dL (250-425)
[2025-04-02] MEDS ORDERED: LORazepam 2MG/ML-1ML VIAL IM ONE (11:15)
[2025-04-02 11:32] LABS: INR 1.04 (0.9-1.15); Partial Thromboplastin Time 29.2 SEC (24.5-34.5); Prothrombin Time 11.0 sec (9.3-11.8)
[2025-04-02] MEDS: ERGOCALCIFEROL 50,000 UNIT(1.25MG) CAP PO SCH (11:55)
[2025-04-02] MEDS: POTASSIUM EFFERVESENT TAB 25 MEQ PO ONE (11:55)
[2025-04-02] MEDS: LORazepam 2MG/ML-1ML VIAL IV ONE (12:00)
[2025-04-02 12:28] VITALS: BP 116/82; PULSE 79; RESP 18; TEMP 98.5; O2SAT 97
--- NOTE | 2025-04-02 14:21 | DVHDSRES ---
Discharge Summary Date of Admission Resident Creating Document: AMY LUCIANO RESIDENT Apr 02, 2025 at 03:13 Date of Discharge: Apr 02, 2025 Admitting Diagnosis #Acute intractable abdominal pain Wounds: No wounds upon admission. Labs/Diagnostic Data: Laboratory Results Test 04/02/25 07:51 04/02/25 02:08 04/01/25 23:33 White Blood Count 6.4 10^3/uL (4.4-10.8) Red Blood Count 3.90 10^6/uL (4.5-5.90) Hemoglobin 12.3 g/dL (13.5-17.5) Hematocrit 36.8 % (41.0-53.0) Mean Corpuscular Volume 94.5 fL (80.0-100.0) Mean Corpuscular Hemoglobin 31.6 pg (28.0-32.0) Mean Corpuscular Hemoglobin Concent 33.4 g/dL (32.0-36.0) Red Cell Distribution Width 12.9 % (11.8-14.3) Platelet Count 243 10^3/uL (140-450) Mean Platelet Volume 7.7 fL (6.9-10.8) Neutrophils (%) (Auto) 63.6 % (37.0-80.0) Lymphocytes (%) (Auto) 25.3 % (10.0-50.0) Monocytes (%) (Auto) 9.8 % (0.0-12.0) Eosinophils (%) (Auto) 0.7 % (0.0-7.0) Basophils (%) (Auto) 0.6 % (0.0-2.0) Neutrophils # (Auto) 4.1 10 ^3/uL (1.6-8.6) Lymphocytes # (Auto) 1.6 10 ^3/uL (0.4-5.4) Monocytes # (Auto) 0.6 10 ^3/uL (0-1.3) Eosinophils # (Auto) 0 10 ^3/uL (0-0.8) Basophils # (Auto) 0 10 ^3/uL (0-0.2) Nucleated Red Blood Cells 0.1 % Prothrombin Time 11.0 sec (9.3-11.8) Prothrombin Time INR 1.04 (0.9-1.15) Activated Partial Thromboplast Time 29.2 SEC (24.5-34.5) Sodium Level 145 mmol/L (136-145) Potassium Level 3.3 mmol/L (3.5-5.1) Chloride Level 109 mmol/L (98-107) Carbon Dioxide Level 24 mmol/L (20-31) Anion Gap 12 (5-15) Blood Urea Nitrogen 10 mg/dL (9-23) Creatinine 0.66 mg/dL (0.700-1.30) Glomerular Filtration Rate Calc 129 mL/min (>90) BUN/Creatinine Ratio 15.2 (10.0-20.0) Serum Glucose 67 mg/dL (74-106) Calcium Level 8.1 mg/dL (8.7-10.4) Magnesium Level 2.1 mg/dL (1.6-2.6) Iron Level 53 ug/dL (65-175) Total Iron Binding Capacity 258 ug/dL (250-425) Percent Iron Saturation 20.5 % (20-55) Ferritin 53.4 ng/mL (22-322) Total Bilirubin 1.0 mg/dL (0.2-1.0) Aspartate Amino Transferase (AST) 45 U/L (13-40) Alanine Aminotransferase (ALT) 36 U/L (7-40) Alkaline Phosphatase 63 U/L (46-116) Ammonia 12 umol/L (11-32) Total Protein 6.7 g/dL (5.7-8.2) Albumin 3.9 g/dL (3.2-4.8) Triglycerides Level 62 mg/dL (< 150) Cholesterol Level 124 mg/dL (< 200) LDL Cholesterol 60 mg/dL (< 100) HDL Cholesterol 50 mg/dL (40-59) Carcinoembryonic Antigen < 0.50 ng/mL (<=5.0) Vitamin B12 Level 676 pg/mL (211-911) Vitamin D 25-Hydroxy 18.7 ng/mL (30.0-100) Thyroid Stimulating Hormone (TSH) 2.82 uIU/mL (0.55-4.78) Plasma/Serum Blood Alcohol < 3.0 mg/dL (<10) Urine Color Yellow (Yellow) Urine Clarity Clear (Clear) Urine pH 6.0 (5.0-9.0) Urine Specific [place] > 1.050 (1.001-1.035) Urine Protein 1+ (Negative) Urine Ketones 4+ (Negative) Urine Blood Negative /uL (Negative) Urine Nitrite Negative (Negative) Urine Bilirubin Negative (Negative) Urine Urobilinogen Normal mg/dL (Negative) Urine Leukocyte Esterase Negative /uL (Negative) Urine RBC 16 /hpf (0 - 3) Urine Microscopic WBC 2 /HPF (0-3) Urine Squamous Epithelial Cells None seen /hpf (<5) Urine Bacteria Many /hpf (None Seen) Urine Mucus Few (None Seen) Urine Sperm Present /hpf (None Seen) Urine Glucose Normal mg/dL (Normal) Urine Opiates Screen Neg (NEGATIVE) Urine Fentanyl Screen Neg (NEGATIVE) Urine Barbiturates Screen Neg (NEGATIVE) Urine Phencyclidine Screen Neg (NEGATIVE) Urine Amphetamines Screen Pos (NEGATIVE) Urine Benzodiazepines Screen Neg (NEGATIVE) Urine Cocaine Screen Neg (NEGATIVE) Urine Cannabinoids Screen Neg (NEGATIVE) Lactic Acid Level 1.2 mmol/L (0.4-2.0) Lipase 24 U/L (12-53) Other Laboratory Tests 04/02/25 07:51 Brief Hx & Hospital Course: Óscar Conn is a 29-year-old male, with a past medical history of HIV and polysubstance abuse. The patient came to the ED with chief complain of 2 days of abdominal pain, localized in the RUQ, 10/10 with no irradiation, continue, sharp-like pain; associated with constipation, nausea and vomit #3. Patient is poor historian, with disorganized thinking and rapid speech. On further questioning, the patient reports he consumed methamphetamines on the day of the symptoms started and he has not been taking his HIV medication for the past 2 weeks as he ran out of it. Today, the pain did not improved, this prompted his visit to the ED. The patient denies fever, chills, headache, back pain, dysuria, trauma or other symptoms. In the ED VS: HR: 104bpm; Labs: potassium is 3.2, ALT 62, AST 43. Images: CT scan of the abdomen and pelvis is normal. On past medical history: HIV since . Past Surgical history: Denies surgeries, Family history: unknown. Social history: Patient admits to taking methamphetamine frequently and his last intake was today. He drinks alcohol (last drink 2 days ago) and smokes as well. The patient is homeless. At 13:45 pm, I was notified that patient wants to go against medical advice (AMA). The patient was explained the risk and consequences of going AMA, the patient agreed to understanding but he still wanted to go AMA. The patient was advice to return to the nearest ED in case of worsen of symptoms. ROS: The patient went AMA Physical Exam: The patient went AMA Operations or Procedures PROCEDURE(s): ABPLIV - CT AB PEL WITH IV CON ONLY REASON: Right lower quadrant abdominal pain ORDER NUMBER(s): [id number], ACCESSION NUMBER(s): [id number] Exam: CT CT AB PEL WITH IV CON ONLY History: Right lower quadrant abdominal pain Comparison Study: None TECHNIQUE: A digital director of quality improvement image was obtained. During the uneventful, intravenous administration of contrast material, multislice data acquisition was obtained through the abdomen and pelvis. The data set was subsequently reconstructed into multiplanar reformats. RADIATION DOSE: CTDI vol 5.37 mGy. DLP 285.58 mGy.cm Findings: Evaluation is degraded by motion artifact. Lungs: The lung bases are clear. Liver: Unremarkable. Spleen: Unremarkable. Pancreas: Unremarkable. Gallbladder: Unremarkable. Adrenals: Unremarkable Kidneys: Unremarkable. Pelvic Viscera: Unremarkable. Vasculature: Unremarkable. Retroperitoneum: Unremarkable. Bowel: No bowel obstruction. The appendix is normal. Musculoskeletal: Unremarkable. Soft tissues: Unremarkable Impression: 1. No acute abdominopelvic abnormality. : US LIVER INDICATION: Transaminitis TECHNIQUE: Multiple real-time sonographic images were obtained of the right upper quadrant. COMPARISON: CT abdomen pelvis same date. FINDINGS: The liver demonstrates homogenous echotexture without focal mass lesions. The liver measures 17.2 cm. There is an echogenic mass measuring 2.0 x 1.5 x 2.4 cm. There is hepatopedal color doppler flow in the main portal vein. There is no intrahepatic biliary ductal dilatation. The gallbladder is without evidence of stone or sludge. The gallbladder wall measures 0.3 cm. The common bile duct measures 0.5 cm. There is a negative sonographic Stephens's sign. The right kidney measures 10.9 cm. The right kidney is normal in contour, size, and shape. The echogenicity is normal. There is no hydronephrosis. The pancreas is not well visualized due to overlying bowel gas. Visualized portions of the aorta and inferior vena cava are unremarkable. No evidence of ascites. IMPRESSION: 1. Hepatic steatosis. 2. Echogenic mass in the right hepatic lobe measuring 2.0 x 1.5 x 1.9 cm. This may represent focal fatty deposition. Condition at Discharge: Undetermined Final Diagnosis/Problems List The went AMA Discharge Disposition: AMA Discharge Instruct/Medications Diet: See Comment (The patient went AMA) Scheduled Xcoxmguvkev-Battsvsomllaw-Rguh (Biktarvy 50-200-25 mg), 1 TAB PO DAILY Doxycycline (Monohydrate) (Doxycycline), 100 MG PO BID Emtricitabine/Rilpivirine/Teno (Odefsey 200-25-25 mg), 1 TAB PO DAILY Fluoxetine Hcl (Fluoxetine Hcl), 1 TAB PO DAILY Discharge Statement: "The patient wants to go against medical advice (AMA). The patient was explained the risk and consequences of going AMA, the patient agreed to understanding but he still wanted to go AMA. The patient was advice to return to the nearest ED in case of worsen of symptoms. was advised to return to the ER or call 911 if any headaches, dizziness, shortness of breath, chest pain, abdominal pain, bleeding, fevers, or worsening of medical condition. ASSESSMENT ASSESSMENT Assessment Date of Service: Apr 02, 2025 Billing Provider: MAGALI TANNER MD Common Visit Codes: 75133-PJG/OBS DISCH DAY >30min AMY LUCIANO RESIDENT Apr 02, 2025 14:21
[2025-04-03 15:37] LABS: Hepatitis A Total Antibody Positive (Negative); Hepatitis B Surface Antigen Negative (Negative); Hepatitis C Antibody Negative (Negative)
== END 2025-04-02 13:45 | disposition left against medical advice (07) | DRG 282 ==
LOC: ER 22:42 → OVERFLOW 04-02 03:13
PROVIDERS: ADMIT Internal Medicine; ATTEND Internal Medicine
DX: K85.90 Acute pancreatitis without necrosis or infection, unspecified (principal); G92.8 Other toxic encephalopathy; C22.8 Malignant neoplasm of liver, primary, unspecified as to type; E87.0 Hyperosmolality and hypernatremia; A04.9 Bacterial intestinal infection, unspecified; E83.51 Hypocalcemia; T50.991A Poisoning by other drugs, medicaments and biological substances, accidental (unintentional), initial encounter; K81.9 Cholecystitis, unspecified; K59.01 Slow transit constipation; F32.A Depression, unspecified; F41.9 Anxiety disorder, unspecified; F20.9 Schizophrenia, unspecified; R74.8 Abnormal levels of other serum enzymes; R74.01 Elevation of levels of liver transaminase levels; F15.10 Other stimulant abuse, uncomplicated; Z53.29 Procedure and treatment not carried out because of patient's decision for other reasons; F10.139 Alcohol abuse with withdrawal, unspecified; Y90.9 Presence of alcohol in blood, level not specified; Z88.8 Allergy status to other drugs, medicaments and biological substances; A08.4 Viral intestinal infection, unspecified; E87.6 Hypokalemia; K76.0 Fatty (change of) liver, not elsewhere classified
CPT/HCPCS: 36415; 74177; 76705; 80053; 80061; 80307; 80320; 81001; 82105; 82140; 82306; 82378; 82607; 82728; 83540; 83550; 83605; 83690; 83735; 84443; 85025; 85610; 85730; 86301; 86704; 86706; 86708; 86803; 87340; 96360; G0378; J2470